=== PATIENT | female | born 2000 | race Caucasian/White ===

== ENCOUNTER 2020-06-25 17:29 | Inpatient (IN) ==
--- NOTE | 2020-06-25 18:02 | Emergency Department Note ---
Impression & Plan Alcohol intoxication, Suicide attempt ED Provider Note NAME: SANFORD JAUREGUI AGE: 19 SEX: F : 2000 ARRIVES VIA: Ambulance INFORMANT: EMS ED PROVIDER(S): Negro Valencia MD Chief Complaint: Alcohol intoxication, suicidality HPI: Patient does present and report is obtained from EMS as the patient is not able to cooperate with the history and physical exam. The patient reportedly had drank as much as 1/5 of alcohol earlier today. No reported drugs involved. The patient's BSG was in the 70s. The patient has had decreasing responsiveness but no reported trauma no signs of trauma. The patient's vitals have been stable with an appropriate oxygenation level. No reported medical problems with exception of celiac's per chart review. Patient reportedly had written a suicide note which was given to the upper caser. Additional information was obtained from the patient's friend, Alberta. She had drank an unknown amount of Bacardi. Patient reportedly had a suicide attempt by STEFAN 2 galloway ago. Apparently she has been feeling more left out as she is not doing things that her friends are doing. Patient reportedly was acting weird sending word messages to a friend Ida about being or alive and saying that she is going to end it. Patient reportedly is also sent a [employer] text. 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 Family is from [facility]. ROS: Unable to obtain secondary to clinical condition. Past medical history: See below Surgical history: See below Social history: See below Physical Exam: GENERAL: Arousable to painful stimuli, prone positioning. EYE EXAM: Normal conjunctiva. PERRL, no anisocoria and EOM's grossly intact w/o pain. NECK: Supple, no nuchal rigidity, no adenopathy, non-tender. No signs of meningismus. LUNGS: Clear to auscultation. Normal chest wall mechanics. HEART: NSR, no MRG. ABDOMEN: Abdomen soft, non-tender, normo-active bowel sounds, no masses, no rebound or guarding. BACK: No CVA TTP. SKIN: No rashes and no bruising. UPPER EXTREMITIES: Upper extremities are grossly normal. LOWER EXTREMITIES: Grossly normal, no edema. NEURO EXAM: Spontaneous breathing noted, moves all 4 extremities to painful sti muli. Differential diagnoses: Overdose, toxicologic, infection, hypoglycemia, electrolyte abnormalities, cardiac sources, intracerebral event, neurologic, trauma, as well as other pathologies. Course: Patient was seen and evaluated the bedside. Full history physical exam was performed. EKG: None Imaging Studies: See below Cardiac monitoring: An order was placed for continuous cardiac monitoring. The monitor shows a rate of 66 with sinus rhythm. MDM: Patient was seen due to concern for alcohol intoxication and attempted overdose. Blood work was obtained along with an EKG troponin CT of the head. Patient is breathing spontaneously. Patient currently has a GCS of 7 but the patient is protecting her airway. Patient was placed on 1 L supple supplemental oxygen as a precaution. I did speak with nursing staff if patient desats at all or has any signs of bradypnea/respiratory depression, we would consider intubation. Do not believe that this is required at this time. The patient is also had no reported trauma, no reported vomiting, and no reported coingestions. Patient's alcohol approximately 450. Medical clearance would be in about 11 to 12 hours in which to require psych consult. Given this I did speak with the on- call hospitalist Dr. Jane and the patient was admitted to the medicine service. Patient is still maintaining her airway and no vomiting. Do not bel ieve she requires intubation at this time. The patient was removed nasal cannula and was still satting in the high 90s without any issues. Spontaneous breathing still noted. CT of the head was negative. No signs of coingestion based on UDS. Past Med/Surg History Medical History (Updated 06/25/20 @ 19:14 by Mathew Jane MD) Celiac disease Family History Other Family history non-contributory Social History Smoking Status: Unknown if ever smoked Hx Alcohol Use: Yes Preferred Language: Sami marital status: Single Current Living Situation Comment: Roommates current occupational status: student Feels Safe at Home: Yes Allergies Allergies Allergy/AdvReac Type Severity Reaction Status Date / Time Penicillins Allergy Intermediate Hives Verified 06/25/20 17:56 banana Allergy Unknown EMS Verified 06/25/20 17:56 Beef Containing Products Allergy Unknown Unknown Verified 06/25/20 17:56 gluten Allergy Unknown EMS Verified 06/25/20 17:56 Pork/Porcine Containing Allergy Unknown Unknown Verified 06/25/20 17:56 Products soybean Allergy Unknown EMS Verified 06/25/20 17:56 strawberry Allergy Unknown EMS Verified 06/25/20 17:56 wheat Allergy Unknown EMS Verified 06/25/20 17:56 Home Meds Home Medications Medication Instructions Recorded Confirmed norethindrone-e.estradiol-iron 1 tab PO DAILY 06/25/20 06/25/20 [Blisovi 24 Fe] Results & Data (ED) Vital Signs Vital Signs - 24 hr 06/25/20 17:30 06/25/20 17:41 06/25/20 17:42 Temperature 36.6 C Temperature Source Oral Pulse Rate 56 L 54 L 55 L Pulse Rate from SpO2 Sensor 54 L 56 L Pulse Rhythm Regular Pulse Strength Normal Respiratory Rate 13 23 22 Respiratory Effort / Characteristics Spontaneous Respiratory Pattern Regular Blood Pressure 101/36 L 95/39 L Blood Pressure Mean 57 60 57 Pulse Oximetry 98 99 99 Oxygen Delivery Method Room Air Oxygen Flow Rate Sepsis Recent Fever Within 48 Hours No Sepsis New/Unexplained Change in Mental Status No Sepsis Action Taken by Nursing No Action Required 06/25/20 17:44 06/25/20 17:46 06/25/20 17:50 Temperature Temperature Source Pulse Rate 56 L 54 L 70 Pulse Rate from SpO2 Sensor 57 L 54 L 70 Pulse Rhythm Pulse Strength Respiratory Rate 23 21 25 H Respiratory Effort / Characteristics Respiratory Pattern Blood Pressure 101/36 L Blood Pressure Mean 57 Pulse Oximetry 99 99 99 Oxygen Delivery Method Oxygen Flow Rate Sepsis Recent Fever Within 48 Hours Sepsis New/Unexplained Change in Mental Status Sepsis Action Taken by Nursing 06/25/20 18:00 06/25/20 18:07 06/25/20 18:10 Temperature Temperature Source Pulse Rate 69 73 Pulse Rate from SpO2 Sensor 70 72 Pulse Rhythm Pulse Strength Respiratory Rate 23 23 Respiratory Effort / Characteristics Respiratory Pattern Blood Pressure 108/49 L Blood Pressure Mean 68 Pulse Oximetry 100 99 100 Oxygen Delivery Method Nasal Cannula Oxygen Flow Rate 1 Sepsis Recent Fever Within 48 Hours Sepsis New/Unexplained Change in Mental Status Sepsis Action Taken by Nursing 06/25/20 18:23 06/25/20 18:30 06/25/20 18:40 Temperature Temperature Source Pulse Rate 71 58 L 65 Pulse Rate from SpO2 Sensor 71 58 L 65 Pulse Rhythm Pulse Strength Respiratory Rate 24 21 18 Respiratory Effort / Characteristics Respiratory Pattern Blood Pressure 99/50 L 93/41 L Blood Pressure Mean 66 58 Pulse Oximetry 99 95 95 Oxygen Delivery Method Oxygen Flow Rate Sepsis Recent Fever Within 48 Hours Sepsis New/Unexplained Change in Mental Status Sepsis Action Taken by Nursing 06/25/20 18:45 06/25/20 18:50 06/25/20 19:00 Temperature Temperature Source Pulse Rate 85 78 74 Pulse Rate from SpO2 Sensor 82 79 75 Pulse Rhythm Pulse Strength Respiratory Rate 19 15 22 Respiratory Effort / Characteristics Respiratory Pattern Blood Pressure 101/42 L 102/50 L Blood Pressure Mean 61 67 Pulse Oximetry 95 97 97 Oxygen Delivery Method Oxygen Flow Rate Sepsis Recent Fever Within 48 Hours Sepsis New/Unexplained Change in Mental Status Sepsis Action Taken by Nursing 06/25/20 19:10 06/25/20 19:15 06/25/20 19:20 Temperature Temperature Source Pulse Rate 80 79 78 Pulse Rate from SpO2 Sensor 80 79 79 Pulse Rhythm Pulse Strength Respiratory Rate 20 23 21 Respiratory Effort / Characteristics Respiratory Pattern Blood Pressure 104/48 L Blood Pressure Mean 66 Pulse Oximetry 98 98 97 Oxygen Delivery Method Oxygen Flow Rate Sepsis Recent Fever Within 48 Hours Sepsis New/Unexplained Change in Mental Status Sepsis Action Taken by Nursing 06/25/20 19:30 06/25/20 19:40 06/25/20 19:50 Temperature Temperature Source Pulse Rate 68 75 61 Pulse Rate from SpO2 Sensor 68 75 61 Pulse Rhythm Pulse Strength Respiratory Rate 11 L 20 19 Respiratory Effort / Characteristics Respiratory Pattern Blood Pressure 100/46 L Blood Pressure Mean 64 Pulse Oximetry 100 96 98 Oxygen Delivery Method Oxygen Flow Rate Sepsis Recent Fever Within 48 Hours Sepsis New/Unexplained Change in Mental Status Sepsis Action Taken by Nursing 06/25/20 20:00 06/25/20 20:10 06/25/20 20:15 Temperature Temperature Source Pulse Rate 63 61 71 Pulse Rate from SpO2 Sensor 62 64 70 Pulse Rhythm Pulse Strength Respiratory Rate 18 17 18 Respiratory Effort / Characteristics Respiratory Pattern Blood Pressure 99/40 L 100/43 L Blood Pressure Mean 59 62 Pulse Oximetry 96 95 96 Oxygen Delivery Method Oxygen Flow Rate Sepsis Recent Fever Within 48 Hours Sepsis New/Unexplained Change in Mental Status Sepsis Action Taken by Nursing 06/25/20 20:20 06/25/20 20:30 06/25/20 20:40 Temperature Temperature Source Pulse Rate 73 61 62 Pulse Rate from SpO2 Sensor 73 60 63 Pulse Rhythm Pulse Strength Respiratory Rate 23 18 18 Respiratory Effort / Characteristics Respiratory Pattern Blood Pressure 95/41 L Blood Pressure Mean 59 Pulse Oximetry 95 95 95 Oxygen Delivery Method Oxygen Flow Rate Sepsis Recent Fever Within 48 Hours Sepsis New/Unexplained Change in Mental Status Sepsis Action Taken by Skilled Nursing Medications Current Medication List: was personally reviewed by me Laboratory Data Attestation: I reviewed the patient's lab results. Result diagrams: 06/25/20 17:49 06/25/20 17:49 Lab Results 06/25/20 06/25/20 06/25/20 Range/Units 17:44 17:44 17:44 WBC (4.8-10.8) K/uL RBC (4.2-5.4) M/uL Hgb (12.0-16.0) g/dL Hct (37-47) % MCV (80-100) fL MCH (25-34) pg MCHC (32-36) g/dL RDW Std Deviation (36.4-46.3) fL RDW Coeff of Miguel (11.5-14.5) % Plt Count (130-400) K/uL MPV (7.4-10.4) fL Immature Gran % (Auto) % Neut % (Auto) % Lymph % (Auto) % Jay % (Auto) % Eos % (Auto) % Baso % (Auto) % Neut # (Auto) (1.4-6.5) K/uL Lymph # (Auto) (1.2-3.4) K/uL Jay # (Auto) (0.11-0.59) K/uL Eos # (Auto) (0-0.5) K/uL Baso # (Auto) (0-0.2) K/uL Immature Gran # (Auto) (0.00-0.02) K/uL Sodium (136-145) mmol/L Potassium (3.5-5.1) mmol/L Chloride (98-107) mmol/L Carbon Dioxide (21-32) mmol/L Anion Gap (3-11) BUN (7-18) mg/dl Creatinine (0.6-1.2) mg/dl Est Cr Clr Drug Dosing Est GFR ( Amer) Est GFR (Non-Af Amer) BUN/Creatinine Ratio (10-20) Glucose (70-99) mg/dl Calcium (8.5-10.1) mg/dl Total Bilirubin (0.2-1) mg/dl AST (15-37) U/L ALT (12-78) U/L Alkaline Phosphatase (45-117) U/L Total Protein (6.4-8.2) gm/dl Albumin (3.4-5.0) gm/dl Globulin (2.5-4.0) gm/dl Albumin/Globulin Ratio (0.9-2) TSH (0.300-4.500) uIu/ml Specimen Hemolysis Urine Color Yellow Urine Appearance Clear (Clear) Urine pH 6.5 (4.5-7.5) Ur Specific [place] 1.007 (1.000-1.030) Urine Protein Negative (Negative) Urine Glucose (UA) Negative (Negative) Urine Ketones Negative (Negative) Urine Blood Negative (Negative) Urine Nitrite Negative (Negative) Urine Bilirubin Negative (Negative) Urine Urobilinogen Negative (Negative) Ur Leukocyte Esterase Negative (Negative) Urine Test Negative (Negative) Salicylates (2.8-20) mg/dl Urine Opiates Screen Neg (Neg) Ur Methadone, Qual Neg (Neg) Acetaminophen (10-30) ug/ml Urine Barbiturates Neg (Neg) Ur Phencyclidine (PCP) Neg (Neg) U Amphetamin/Meth Scrn Neg (Neg) MDMA (Ecstasy) Screen Neg (Neg) U Benzodiazepines Scrn Neg (Neg) Ur Cocaine Metabolite Neg (Neg) U Marijuana (THC) Screen Neg (Neg) Ethyl Alcohol mg/dL (0-3) mg/dl COVID-19 Eval Order SARS-CoV-2 (PCR) (Negative) Influenza Type A (PCR) (Neg) Influenza Type B (PCR) (Neg) RSV (RT-PCR) (Neg) 06/25/20 06/25/20 06/25/20 Range/Units 17:49 17:49 17:49 WBC 12.32 H (4.8-10.8) K/uL RBC 4.49 (4.2-5.4) M/uL Hgb 15.1 (12.0-16.0) g/dL Hct 43.5 (37-47) % MCV 96.9 (80-100) fL MCH 33.6 (25-34) pg MCHC 34.7 (32-36) g/dL RDW Std Deviation 49.3 H (36.4-46.3) fL RDW Coeff of Miguel 13.9 (11.5-14.5) % Plt Count 284 (130-400) K/uL MPV 10.6 H (7.4-10.4) fL Immature Gran % (Auto) 0.2 % Neut % (Auto) 69.7 % Lymph % (Auto) 26.5 % Jay % (Auto) 3.3 % Eos % (Auto) 0.1 % Baso % (Auto) 0.2 % Neut # (Auto) 8.58 H (1.4-6.5) K/uL Lymph # (Auto) 3.26 (1.2-3.4) K/uL Jay # (Auto) 0.41 (0.11-0.59) K/uL Eos # (Auto) 0.01 (0-0.5) K/uL Baso # (Auto) 0.03 (0-0.2) K/uL Immature Gran # (Auto) 0.03 H (0.00-0.02) K/uL Sodium 146 H (136-145) mmol/L Potassium 3.9 (3.5-5.1) mmol/L Chloride 112 H (98-107) mmol/L Carbon Dioxide 22 (21-32) mmol/L Anion Gap 12.0 H (3-11) BUN 14 (7-18) mg/dl Creatinine 0.85 (0.6-1.2) mg/dl Est Cr Clr Drug Dosing Not Reportable Est GFR ( Amer) 114.3 Est GFR (Non-Af Amer) 98.6 BUN/Creatinine Ratio 16.3 (10-20) Glucose 74 (70-99) mg/dl Calcium 9.0 (8.5-10.1) mg/dl Total Bilirubin 0.3 (0.2-1) mg/dl AST 21 (15-37) U/L ALT 52 (12-78) U/L Alkaline Phosphatase 60 (45-117) U/L Total Protein 7.9 (6.4-8.2) gm/dl Albumin 4.0 (3.4-5.0) gm/dl Globulin 3.9 (2.5-4.0) gm/dl Albumin/Globulin Ratio 1.0 (0.9-2) TSH 0.525 (0.300-4.500) uIu/ml Specimen Hemolysis Urine Color Urine Appearance (Clear) Urine pH (4.5-7.5) Ur Specific Cary (1.000-1.030) Urine Protein (Negative) Urine Glucose (UA) (Negative) Urine Ketones (Negative) Urine Blood (Negative) Urine Nitrite (Negative) Urine Bilirubin (Negative) Urine Urobilinogen (Negative) Ur Leukocyte Esterase (Negative) Urine Test (Negative) Salicylates < 1.7 L (2.8-20) mg/dl Urine Opiates Screen (Neg) Ur Methadone, Qual (Neg) Acetaminophen < 2 L (10-30) ug/ml Urine Barbiturates (Neg) Ur Phencyclidine (PCP) (Neg) U Amphetamin/Meth Scrn (Neg) MDMA (Ecstasy) Screen (Neg) U Benzodiazepines Scrn (Neg) Ur Cocaine Metabolite (Neg) U Marijuana (THC) Screen (Neg) Ethyl Alcohol mg/dL (0-3) mg/dl COVID-19 Eval Order SARS-CoV-2 (PCR) (Negative) Influenza Type A (PCR) (Neg) Influenza Type B (PCR) (Neg) RSV (RT-PCR) (Neg) 06/25/20 06/25/20 06/25/20 Range/Units 17:49 18:51 18:51 WBC (4.8-10.8) K/uL RBC (4.2-5.4) M/uL Hgb (12.0-16.0) g/dL Hct (37-47) % MCV (80-100) fL MCH (25-34) pg MCHC (32-36) g/dL RDW Std Deviation (36.4-46.3) fL RDW Coeff of Miguel (11.5-14.5) % Plt Count (130-400) K/uL MPV (7.4-10.4) fL Immature Gran % (Auto) % Neut % (Auto) % Lymph % (Auto) % Jay % (Auto) % Eos % (Auto) % Baso % (Auto) % Neut # (Auto) (1.4-6.5) K/uL Lymph # (Auto) (1.2-3.4) K/uL Jay # (Auto) (0.11-0.59) K/uL Eos # (Auto) (0-0.5) K/uL Baso # (Auto) (0-0.2) K/uL Immature Gran # (Auto) (0.00-0.02) K/uL Sodium (136-145) mmol/L Potassium (3.5-5.1) mmol/L Chloride (98-107) mmol/L Carbon Dioxide (21-32) mmol/L Anion Gap (3-11) BUN (7-18) mg/dl Creatinine (0.6-1.2) mg/dl Est Cr Clr Drug Dosing Est GFR ( Amer) Est GFR (Non-Af Amer) BUN/Creatinine Ratio (10-20) Glucose (70-99) mg/dl Calcium (8.5-10.1) mg/dl Total Bilirubin (0.2-1) mg/dl AST (15-37) U/L ALT (12-78) U/L Alkaline Phosphatase (45-117) U/L Total Protein (6.4-8.2) gm/dl Albumin (3.4-5.0) gm/dl Globulin (2.5-4.0) gm/dl Albumin/Globulin Ratio (0.9-2) TSH (0.300-4.500) uIu/ml Specimen Hemolysis Urine Color Urine Appearance (Clear) Urine pH (4.5-7.5) Ur Specific Cary (1.000-1.030) Urine Protein (Negative) Urine Glucose (UA) (Negative) Urine Ketones (Negative) Urine Blood (Negative) Urine Nitrite (Negative) Urine Bilirubin (Negative) Urine Urobilinogen (Negative) Ur Leukocyte Esterase (Negative) Urine Test (Negative) Salicylates (2.8-20) mg/dl Urine Opiates Screen (Neg) Ur Methadone, Qual (Neg) Acetaminophen (10-30) ug/ml Urine Barbiturates (Neg) Ur Phencyclidine (PCP) (Neg) U Amphetamin/Meth Scrn (Neg) MDMA (Ecstasy) Screen (Neg) U Benzodiazepines Scrn (Neg) Ur Cocaine Metabolite (Neg) U Marijuana (THC) Screen (Neg) Ethyl Alcohol mg/dL 448.0 H (0-3) mg/dl COVID-19 Eval Order CovFluRsv at [facility] SARS-CoV-2 (PCR) NEGATIVE (Negative) Influenza Type A (PCR) Negative (Neg) Influenza Type B (PCR) Negative (Neg) RSV (RT-PCR) Negative (Neg) Administered Medications Sodium Chloride (Nss) 500 mls @ 100 mls/hr IV .Q5H YARITZA Stop: 07/25/20 18:44 Last Admin: 06/25/20 18:50 Dose: 100 mls/hr Documented by: [id number] Imaging Data Radiologist's Impression: Head CT 06/25/20 17:40 CT head/brain wo con CLINICAL HISTORY: 19 years-old Female with ETOH. Acute head trauma TECHNIQUE: Multiple axial CT images of the head were obtained without contrast. A dose lowering technique was utilized adhering to the principles of ALARA. CT DOSE: 773.57 mGy.cm COMPARISON: None. FINDINGS: Artifact from the patient's earrings limits the study. No acute intracranial hemorrhage, midline shift, intracranial mass, hydrocephalus, territorial ischemia or abnormal extra-axial collection. The calvarium is intact. The paranasal sinuses, mastoid air cells, and middle ear cavities are clear. IMPRESSION: No acute intracranial abnormality. ACT 112: Negative or not required by law. The above report was generated using voice recognition software. It may contain grammatical, syntax or spelling errors. Electronically signed by: Gary Boykin M.D. 06/25/2020 6:23 PM Discharge Plan Visit Data Chief Complaint: Alcohol Intoxication Stated Complaint: ETOH, MHID ED Provider: Negro Valencia Discharge Problem: Alcohol intoxication, Suicide attempt Forms Stand Alone Forms: My [facility] [place] [employer] Prescriptions Prescriptions: No Action norethindrone-e.estradiol-iron [Blisovi 24 Fe] 1 mg-20 mcg (24)/75 mg (4) tablet 1 tab PO DAILY RF: 0
[2020-06-25 18:04] LABS: Basophils # (auto) 0.03 K/uL (0-0.2); Basophils % (auto) 0.2 %; Eosinophils # (auto) 0.01 K/uL (0-0.5); Eosinophils % (auto) 0.1 %; Hematocrit (blood only) 43.5 % (37-47); Hemoglobin 15.1 g/dL (12.0-16.0); Immature Granulocytes # (auto) 0.03 K/uL (0.00-0.02); Immature Granulocytes % (auto) 0.2 %; Lymphocytes # (auto) 3.26 K/uL (1.2-3.4); Lymphocytes % (auto) 26.5 %; Mean Corpuscular Hemoglobin 33.6 pg (25-34); Mean Corpuscular Hgb Conc 34.7 g/dL (32-36); Mean Corpuscular Volume 96.9 fL (80-100); Mean Platelet Volume 10.6 fL (7.4-10.4); Monocytes # (auto) 0.41 K/uL (0.11-0.59); Monocytes % (auto) 3.3 %; Neutrophils # (auto) 8.58 K/uL (1.4-6.5); Neutrophils % (auto) 69.7 %; Platelet Count 284 K/uL (130-400); RDW Coefficient of Variation 13.9 % (11.5-14.5); RDW Standard Deviation 49.3 fL (36.4-46.3); Red Blood Count 4.49 M/uL (4.2-5.4); White Blood Count 12.32 K/uL (4.8-10.8)
[2020-06-25 18:10] LABS: Appearance Urine Clear (Clear); Bilirubin Urine Negative (Negative); Blood Urine Negative (Negative); Color Urine Yellow; Glucose Urine UA Negative (Negative); Ketones Urine Negative (Negative); Leukocyte Esterase Urine Negative (Negative); Nitrite Urine Negative (Negative); Protein Urine Negative (Negative); Specific Gravity Urine 1.007 (1.000-1.030); Urobilinogen Urine Negative (Negative); pH Urine 6.5 (4.5-7.5)
[2020-06-25 18:12] LABS: Pregnancy Test, Urine Negative (Negative)
--- NOTE | 2020-06-25 18:24 | CT Scan Report ---
CT head/brain wo con CLINICAL HISTORY: 19 years-old Female with ETOH. Acute head trauma TECHNIQUE: Multiple axial CT images of the head were obtained without contrast. A dose lowering tech nique was utilized adhering to the principles of ALARA. CT DOSE: 773.57 mGy.cm COMPARISON: None. FINDINGS: Artifact from the patient's earrings limits the study. No acute intracranial hemorrhage, midline shif t, intracranial mass, hydrocephalus, territorial ischemia or abnormal extra-axial collection. The calvarium is intact. The paranasal sinuses, mastoid air cells, and middle ear cavities are clear . IMPRESSION: No acute intracranial abnormality. ACT 112: Negative or not required by law. The above report was generated using voice recognition software. It may contain grammatical, syntax o r spelling errors. Electronically signed by: Gary Boykin M.D. 06/25/2020 6:23 PM
[2020-06-25 18:28] LABS: Alanine Aminotransferase 52 U/L (12-78); Aspartate Aminotransferase 21 U/L (15-37); BUN Creatinine Ratio 16.3 (10-20); Blood Urea Nitrogen 14 mg/dl (7-18); Carbon Dioxide 22 mmol/L (21-32); Chloride 112 mmol/L (98-107); Est GFR (African American) 114.3; Est GFR (Non-African American) 98.6; Glucose 74 mg/dl (70-99); Potassium 3.9 mmol/L (3.5-5.1); Sodium 146 mmol/L (136-145)
[2020-06-25 18:32] LABS: Amphetamines+Metham, Urine Neg (Neg); Barbiturates, Urine Neg (Neg); Benzodiazepine, Urine Neg (Neg); Cocaine, Urine Neg (Neg); MDMA (Ecstacy), Urine Neg (Neg); Methadone, Urine Neg (Neg); Opiate, Urine Neg (Neg); Phencyclidine, Urine Neg (Neg)
[2020-06-25 18:33] LABS: Acetaminophen < 2 ug/ml (10-30); Salicylate < 1.7 mg/dl (2.8-20)
[2020-06-25 18:34] LABS: Alkaline Phosphatase 60 U/L (45-117); Bilirubin,Total 0.3 mg/dl (0.2-1); Globulin 3.9 gm/dl (2.5-4.0); Thyroid Stimulating Hormone 0.525 uIu/ml (0.300-4.500); Total Protein 7.9 gm/dl (6.4-8.2)
[2020-06-25] MEDS ORDERED: SODIUM CHLORIDE 0.9% 500 ML IV SCH (18:45)
--- NOTE | 2020-06-25 19:08 | History & Physical Report ---
Date of Service June 25, 2020 Assessment & Plan (1) Alcohol intoxication: Severe with alcohol intoxication. Ethyl alcohol level 448 mg/dL. RR 18. Gag reflex intact Monitor overnight on PCU for respiratory depression with end tidal CO2 monitoring and continuous pulse oximetry. (2) Anxiety: Noted possible reason for patient drinking alcohol on prior ER notes. (3) Suicide attempt: One to one. Consult psychiatry (4) Celiac disease: Notable history of this on chart. NPO for now but will need gluten free diet when able to the eat/drink. Admission and Anticipated Discharge Date Admission Date: June 25, 2020 History of Present Illness Chief Complaint: Unresponsiveness, alcohol intoxication Primary Care Provider: [facility] Lucita Palacios is a 19-year-old female who presents to the ER via EMS due to unresponsiveness after drinking an unknown quantity of Bacardi with a suicide note. Reportedly has a history of suicidal attempt 2 years ago. Unable to get any history from patient due to reduced conscious state. 2 prior ER notes for alcohol intoxication and one prior note for mental health evaluation noted. Allergies Allergy/AdvReac Type Severity Reaction Status Date / Time Penicillins Allergy Intermediate Hives Verified 06/25/20 17:56 banana Allergy Unknown EMS Verified 06/25/20 17:56 Beef Containing Products Allergy Unknown Unknown Verified 06/25/20 17:56 gluten Allergy Unknown EMS Verified 06/25/20 17:56 Pork/Porcine Containing Allergy Unknown Unknown Verified 06/25/20 17:56 Products soybean Allergy Unknown EMS Verified 06/25/20 17:56 strawberry Allergy Unknown EMS Verified 06/25/20 17:56 wheat Allergy Unknown EMS Verified 06/25/20 17:56 Home Medications Medication Instructions Recorded Confirmed Type norethindrone-e.estradiol-iron 1 tab PO DAILY 06/25/20 06/25/20 History [Blisovi 24 Fe] Past Med/Surg History Medical History Celiac disease Family History Other Family history non-contributory Social History Smoking Status: Unknown if ever smoked Hx Alcohol Use: Yes Alcohol type: hard liquor Preferred Language: Albanian marital status: Single Current Living Situation: Other Current Living Situation Comment: pt is student at [employer] - has roommates current occupational status: student Feels Safe at Home: Yes Review of Systems Review of Systems: Unobtainable due to reduced consciousness Physical Exam Constitutional: well developed and well nourished; no acute distress Eyes: PERRL, conjunctivae normal, anicteric sclerae (dilated) ENMT: external ear and nose normal, oropharynx normal Neck: trachea midline Respiratory: normal respiratory effort, lungs clear to auscultation Cardiovascular: RRR, no murmur, no edema Gastrointestinal (Abdomen): normal bowel sounds, soft, nontender, no hepatosplenomegaly Musculoskeletal: no cyanosis or clubbing, extremities motor strength 5/5 Skin: no rashes, warm and dry Neurologic: moves all extremities (reportedly moving when she went for CT); + not awake (GCS 7 ([id number])) Psychiatric: Orientation: + not alert Results & Data Results & Data ([facility]) Vital Signs (Past 12 Hours) Vital Signs Temp Pulse Resp BP Pulse Ox 06/25/20 18:23 71 24 99/50 L 99 06/25/20 18:10 73 23 100 06/25/20 18:07 99 06/25/20 18:00 69 23 108/49 L 100 06/25/20 17:50 70 25 H 99 06/25/20 17:46 54 L 21 101/36 L 99 06/25/20 17:44 56 L 23 99 06/25/20 17:42 55 L 22 95/39 L 99 06/25/20 17:41 54 L 23 99 06/25/20 17:30 36.6 C 56 L 13 101/36 L [address] head/brain wo con IMPRESSION: No acute intracranial abnormality. Medications Administered ER Medications Given: NSS 500ml @ 100 ml/hr Code Status & VTE Plan Code Status Full VTE Prophylaxis Plan VTE Prophylaxis will be ordered: No Reason for no VTE drug order: Treatment not indicated Reason for no VTE mechanical prophylaxis: Treatment not indicated PG Care Time/CCT Total # of Minutes Spent Total Time Spent with Patient: Total time spent is greater than 50% in coordination of care (as documented) at patient's floor/unit and/or counseling patient: Coding Level of Care Code 98610 Initial Inpt Care Lvl 3 Diagnoses Alcohol intoxication F10.929 Complication of substance-induced condition: with unspecified complication Anxiety F41.9 Suicide attempt T14.91XA Celiac disease K90.0 (1) Alcohol intoxication Complication of substance-induced condition: with unspecified complication Qualified Code(s): F10.929 - Alcohol use, unspecified with intoxication, unspecified
[2020-06-25 20:03] LABS: Influenza A virus by PCR Negative (Neg); Influenza B virus by PCR Negative (Neg); RSV by PCR Negative (Neg); SARS CoV2 RNA(COVID-19) InHosp NEGATIVE (Negative)
[2020-06-25] MEDS ORDERED: MULTI-VITAMIN INFUSION 10 ML, THIAMINE HCL 100 MG, FOLIC ACID 1 MG in SODIUM CHLORIDE 0... IV ONE (21:23)
[2020-06-26] MEDS ORDERED: SODIUM CHLORIDE 0.9% 1000ML 1,000 ML IV SCH (02:15)
[2020-06-26] MEDS ORDERED: DEXTROSE 5% 1,000 ML IV SCH (06:00)
[2020-06-26 06:31] LABS: Basophils # (auto) 0.01 K/uL (0-0.2); Basophils % (auto) 0.1 %; Immature Granulocytes # (auto) 0.04 K/uL (0.00-0.02); Immature Granulocytes % (auto) 0.4 %; Lymphocytes % (auto) 19.5 %; Mean Corpuscular Hemoglobin 32.8 pg (25-34); Mean Corpuscular Hgb Conc 33.3 g/dL (32-36); Mean Corpuscular Volume 98.4 fL (80-100); Mean Platelet Volume 10.3 fL (7.4-10.4); Monocytes # (auto) 0.33 K/uL (0.11-0.59); Monocytes % (auto) 3.1 %; Neutrophils # (auto) 8.31 K/uL (1.4-6.5); Neutrophils % (auto) 76.9 %; Platelet Count 255 K/uL (130-400); RDW Coefficient of Variation 14.2 % (11.5-14.5); Red Blood Count 4.27 M/uL (4.2-5.4); White Blood Count 10.79 K/uL (4.8-10.8)
--- NOTE | 2020-06-26 06:56 | XRay Report ---
XR chest 1V portable CLINICAL HISTORY: acute alcohol intoxication COMPARISON STUDY: No previous studies for comparison. FINDINGS: The cardiac and mediastinal contours are normal. There is no evidence of focal pulmonary co nsolidation. There is no evidence of failure. No pleural effusions are visualized.[ IMPRESSION: No active disease in the chest. ACT 112: Negative or not required by law. Electronically signed by: Aron Burciaga M.D. 06/26/2020 6:55 AM
[2020-06-26 07:02] LABS: Alanine Aminotransferase 47 U/L (12-78); Albumin Level 3.4 gm/dl (3.4-5.0); Aspartate Aminotransferase 22 U/L (15-37); Blood Urea Nitrogen 22 mg/dl (7-18); Calcium 8.1 mg/dl (8.5-10.1); Carbon Dioxide 19 mmol/L (21-32); Chloride 116 mmol/L (98-107); Est GFR (African American) 97.4; Est GFR (Non-African American) 84.1; Glucose 87 mg/dl (70-99); Potassium 4.2 mmol/L (3.5-5.1); Sodium 145 mmol/L (136-145)
[2020-06-26 07:05] LABS: Alkaline Phosphatase 53 U/L (45-117); Bilirubin,Total 0.4 mg/dl (0.2-1); Globulin 3.4 gm/dl (2.5-4.0); Total Protein 6.8 gm/dl (6.4-8.2)
[2020-06-26] MEDS ORDERED: ACETAMINOPHEN 325 MG TAB PO PRN (09:03)
[2020-06-26] MEDS ORDERED: ONDANSETRON 4 MG OD TAB PO PRN (09:03)
--- NOTE | 2020-06-26 13:35 | Communication Note ---
Date of Service: June 26, 2020 Lucita Palacios is a 19-year-old female admitted medically on 06/25/20 after presenting to the ED via ambulance s/p intentional ingestion of a large amount of alcohol (BAL 448) and a suicide attempt by trying to drown self in bathtub (according to evidence presented by friends). Additional information was provided by the patient's roommates, who provided copies of text messages and history demonstrating a pattern of isolation and intentional separation from supports and even canceling plans for the following week. Information provided by the roommates was reviewed by this provider in detail and is quite concerning. Pt also wrote a suicide note, copy on chart. This provider met with the patient to complete requested psychiatric consultation. Pt minimizing factors leading to her admission and has expressed multiple times to several different staff members that she is not interested in inpatient psychiatric treatment. Patient's case was reviewed with attending hospitalist and supervising psychiatrist. Pt has since been medically cleared and plan is to purse involuntary psychiatric admission. See Psychiatric H&P for additional documentation regarding the patient's history.
--- NOTE | 2020-07-04 08:17 | Discharge Summary ---
Date of Service June 26, 2020 Admission HPI Per Admitting Provider Lucita Palacios is a 19-year-old female who presents to the ER via EMS due to unresponsiveness after drinking an unknown quantity of Bacardi with a suicide note. Reportedly has a history of suicidal attempt 2 years ago. Unable to get any history from patient due to reduced conscious state. 2 prior ER notes for alcohol intoxication and one prior note for mental health evaluation noted. Principal Diagnosis Suicide attempt Discharge Exam Constitutional WD/WN, vitals as above Eyes EOM intact bilaterally; no conjunctival abnormality ENMT external ear and nose normal, oropharynx normal Neck trachea midline, no thyromegaly normal visual inspection Respiratory normal respiratory effort, lungs clear to auscultation no respiratory distress Cardiovascular RRR, no murmur, no edema Gastrointestinal (Abdomen) Inspection/Auscultation: abdomen normal to inspection; abdomen not distended Musculoskeletal no cyanosis or clubbing, extremities motor strength 5/5 Skin no rashes, warm and dry Neurologic moves all extremities and awake Psychiatric Orientation: alert, oriented to person and cooperative Discharge Data Allergies Allergy/AdvReac Type Severity Reaction Status Date / Time Penicillins Allergy Intermediate Hives Verified 06/25/20 17:56 banana Allergy Unknown EMS Verified 06/25/20 17:56 gluten Allergy Unknown EMS Verified 06/25/20 17:56 milk Allergy Unknown Unknown Verified 06/26/20 15:50 soybean Allergy Unknown EMS Verified 06/25/20 17:56 strawberry Allergy Unknown EMS Verified 06/25/20 17:56 wheat Allergy Unknown EMS Verified 06/25/20 17:56 Consultations 06/25/20 19:05 ED Decision to Admit Stat 06/26/20 01:56 Consult Psychiatry Routine 06/26/20 02:59 Consult Behavioral Health Liaison Routine Ordered Studies 06/25/20 17:40 CT head/brain wo con Stat Hospital Course (1) Alcohol intoxication: Severe with alcohol intoxication. Ethyl alcohol level 448 mg/dL. RR 18. Gag reflex intact Monitor overnight on PCU for respiratory depression with end tidal CO2 monitoring and continuous pulse oximetry. Awake and alert by June 26. No sign of alcohol withdrawal. Ready for transition to inpatient psychiatry. (2) Anxiety: Noted possible reason for patient drinking alcohol on prior ER notes. (3) Suicide attempt: One to one. Consult psychiatry (4) Celiac disease: Notable history of this on chart. NPO for now but will need gluten free diet when able to the eat/drink. Total Time Total Time Spent Total Time Spent (In Minutes): 35 Discharge Plan Discharge Items Patient Disposition: Transfer [facility] Reason For Visit: ALCOHOL INTOXICATION, SUICIDAL ATTEMPT Discharge Diagnosis: Same Activity: Resume your previous activity Non-emergency contact: Primary Care Provider Call non-emergency contact if: your symptoms worsen Follow-up/Referrals: [facility] [Primary Care Provider] - Diet: Regular Addtl Attending Provider Instructions: Transfer to [facility] after suicide attempt. Can monitor for withdrawal for another 2-3 days, but I think it is unlikely as she is a sporadic, binge drinker and is not currently having any symptoms. Pending Studies at Discharge: No Stand-Alone Forms: My [facility] Medications and DC Order Prescriptions: Continued norethindrone-e.estradiol-iron [Blisovi 24 Fe] 1 mg-20 mcg (24)/75 mg (4) tablet 1 tab PO DAILY RF: 0 Discharge Orders: Discharge Order (Routine); Ordered 06/26/20 Ordered By: Hudson Saha Admission Data Admit Date/Time: 06/25/20 19:52 Attending Provider: Hudson Saha Admit Provider: Mathew Jane Primary Care Provider: [facility] Other Providers: Anant Corley ; Hudson Saha Other Interventions: Discharge Summary Assessment (RN) Last Done: 06/26/20 14:58 Coding Level of Care Code D/C Day Management >30 mins Diagnoses Alcohol intoxication F10.929 Complication of substance-induced condition: with unspecified complication Anxiety F41.9 Suicide attempt T14.91XA Celiac disease K90.0
== END 2020-06-26 15:00 | DRG 918 ==
LOC: ED 17:29 → 2S 19:52 → SUATTDRO 19:52 → 2S 06-26 01:28

== ENCOUNTER 2020-06-26 14:40 | Inpatient (IN) ==
--- NOTE | 2020-06-26 15:19 | History & Physical ---
Date of Service June 26, 2020 Impression / Recommendations Impression 19-year-old female admitted involuntarily for psychiatric treatment on 06/26/20 after <24 hour stay on the medical floor following presentation to the ED for alcohol intoxication, having written a suicide note and goodbye text messages to friends/roommates. Inpatient psychiatric treatment is medically necessary as patient is minimizing events leading to her admission and remains at acute risk of suicide if discharged prematurely. Dr. Carmella Gooden was directly involved in review and discussion of the patient's case and participated in medical decision making regarding treatment recommendations. (1) Suicide attempt: 06/26 - Denies SI presently, but had very concerning behavior prior to admission which appears to be premeditated suicide attempt - Admitted to a locked inpatient behavioral health unit, on q15 minute safety checks - Encourage medication initiation/adjustments as indicated - Encourage participation in group and recreational therapies - Gather collateral information from outpatient providers - Suggest family meeting to involve outpatient supports in safety planning - Arrange appropriate aftercare (2) Depression: 06/26 - Diagnostic picture is admittedly clouded by minimization of symptoms by the patient. She admits to history of behaviors which are consistent with major depressive episodes in the past; however describes her recent mood as "solid" and denies depressive symptoms within the past few weeks - History provided by roommates suggests increased isolative behaviors and discord with friendships. She did endorse decreased concentration, poor motivation, crying spells, and hopelessness during conversation with our liaison, but under reported these during encounter with this provider - Recommendation for medications and outpatient therapy was suggested, patient is presently declining both - will continue to offer education and information on these recommendations. - Encourage patient to engage in group and recreational programming, assist with development of healthy and effective coping strategies - Encourage family meeting with outpatient supports (parents flying into the area) - Assist patient with completion of a safety plan Depression Type: unspecified Qualified Code(s): F32.9 - Major depressive disorder, single episode, unspecified (3) Anxiety: 06/26 - Pt meets criteria for generalized anxiety disorder with panic attacks. She is declining at this time to consider medications. Will continue to offer education and information, encouraging trial of an SSRI - Hydroxyzine as needed for acute anxiety and/or insomnia - Assist with development of healthy and effective coping strategies (4) Alcohol abuse: 06/26 - AWSS protocol - prn lorazepam as needed per protocol - Pt is able to identify past issues with alcohol use, but reports feeling as though her current use in not concerning as she has cut down in consumption. - Pt has had 4 presentations to the ED for alcohol related concerns, and is not of legal age for alcohol use - Pt would benefit from formal D&A counseling to address these concerns - Continue to explore motivation for change - Brief intervention was offered and accepted Intervention was greater than 5 min in length. Brief interventions include: 1. Assess Readiness to Quit, 2. Advise: Help Patient to Reduce or Abstain from Alcohol, 3. Agree: Set Specific, Feasible Goa ls, 4. Assist: Anticipate barriers, Problem-Solving Solutions. Social work to 5. Arrange: Referrals to appropriate treatment. Summary of intervention: The patient is in precontemplation stage with regards to transtheoretical model of change. The patient is advised to decrease alcohol consumption due to depressant effects and risk of interactions with prescription medications. The patient was advised of recommendations for abstinence from alcohol and other abusable substances and to attend substance abuse treatment at discharge, and will be provided with recovery materials to continue to education self on how to cope with their condition without drinking. (5) Celiac disease: 06/26 - Appropriate diet, dietary consultation if indicated - Monitor nutritional intake given history of disordered eating behaviors Risk Factors Assessment Male: No : Yes Do You Have Access To A Gun?: No Substance Use Disorders: Yes Previous Attempt: Yes Previous Psychiatric Hospitalization: No Hopelessness: Yes Smoker: No Protective Factors Assessment : No Responsible for Young Children: No Stable Relationships: No Supportive Family: Yes Psychiatric History Identifying Data SANFORD PALACIOS is a 19-year-old [employer] who currently resides in an apartment with 3 roommates. Pt admits to a history of untreated depression and anxiety, and was admitted on 06/26/20 15:11 on a 302 involuntary commitment for depression and a suicide attempt by alcohol intoxication and what seems to be attempted drowning. 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 Patient is from [facility] where her parents still reside. The patient presented to the ED on 06/25/20 via ambulance with reported alcohol intoxication and suicidality. Pt was initially unable/unwilling to cooperate with providing information in the ED. BAL on presentation was 448.0 and patient had reportedly consumed as much as a 1/5 of liquor over the course of the day. Additional information provided by the patient's roommates which indicates patient began intentionally isolating self from others starting June 18, increased alcohol use, she reportedly began cancelling plans and passing along projects to her roommates in anticipation she would "forget" later. From the text messages provided, it appears that patient may have been upset about not being invited to a republican over the weekend, though obviously is not of legal age. On 06/25, it was reported that the patient was visibly upset and started drinking early in the morning. Pt then sent a text to her friends which states "I'm so sorry but I just can't do this anymore. I'm chilling in the bath until it's over. I really do love you all!" Pt reportedly did not answer when friends attempted to knock on the bathroom door. It was reported she consumed "almost half a handle of the Bacardi." A suicide note was also found, which reads - This world is cruel. I applaud anyone who can live in it. Me? I am too weak and unwanted to keep going in it. I tried. I tried more than I have at anything in my life, but I cant feel this pain anymore. To my family: Im so sorry and I love you more than anything and I hope to see you in the after. 302 petitioning statement was completed by the parks and recreation manager, based on this suicide note. 302 commitment was pursued based on repeated reports during multiple interviews that the patient was not willing to comply with recommendation for inpatient psychiatric admission. Pt did agree to conversation with this provider, though it is felt that her reports are greatly minimized when compared to information provided by roommates. Pt indicated she came to the ED as a result of "I drank a lot...yeah", and did not spontaneously elaborate. Pt then admitted to some trouble with "friendships and self-worth type stuff", but indicated that "it's all been fine though recently, I've been working on it." Pt indicated that she has been struggling with depressed mood for "the past couple months", but is only reporting now that "things are a lot better, I have a solid handle on it." Despite attempts by this provider to challenge this idea, the patient maintains that the is not experiencing any acute issues. When asked about the suicide note, the patient states "oh, I did that? Shoot." She denies consuming the alcohol with the intent to end her life, but admits "it was a thought that came up, and at that point I didn't care if it hurt me." Pt does disclose a history of self-harm behavior by cutting, admitting to cutting last evening during these events. According to the patient, the only reports regarding yesterday are "I started drinking early in the morning, and then I just snapped at something." She is unable/unwilling to explain what that "something" might have been. Pt continues to be resistant to labeling her actions as a suicide attempt, but does later admit "I think because things had been going so well, I had that fear of regression." Pt states that she has noticed improvement in mood through being more social, reading her bible, and reducing the academic pressure she puts on herself - some of these self-reports are conflicting when compared to information provided by roommates. Pt does admit to anxiety "since I could first think of it, maybe high school?" She states that she experiences panic attacks daily to every other day, often out of the blue. She admits to anxiety surrounding friendships and academics. Pt admits to poor concentration, racing thoughts, and difficulty with sleep. She states she had outpatient therapy her Freshman year of college, but has not continued with this. She states she had started reaching out to resume therapy but declined to add her name to a waitlist as "I was just going to handle it next semester." Pt declines to discuss medication options today, stating "I've never been one to want to depend on medications." When discussing recommendation for therapy, the patient states "I'm confident I can take care of that myself later." Pt admits to history of restrictive/purging behaviors from high school to Freshman year of college, but denies recent/current temptation to participate in these behaviors. She also admits to history of abuse/trauma, though is not willing to disclose details at this time. Pt continues to min imize these concerns and affect is generally light with frequent smiling. She states that she does not feel that inpatient psychiatric treatment would be beneficial for her. Pt admits to history of more excessive alcohol use, daily use of significant amount of liquor - withdrawal symptoms of nausea, shaking, "emotional depression", and "seeing floaters". She states that she has cut back on her alcohol use recently, drinking 2-3 days per week to the point of feeling buzzed. When asked the number of drinks per day, she states "eh, maybe 4 or 5" but then adds "in 3 hours." Pt denies current SI, HI, A/V hallucinations, paranoia, bi/hypomania, other symptoms more suggestive of a bipolar presentation, OCD, and other specific psychiatric symptoms. Past Psychiatric History Outpatient Services: None Previous Psych Admissions: None Do You Have Access To A Gun?: No History of Previous Suicide Attempt: Yes (per ED note, "suicide attempt by STEFAN 2 galloway ago") Past Medication Trials: None Past Head Trauma/Neuro History History of Concussion/Seizure: No Allergies Allergy/AdvReac Type Severity Reaction Status Date / Time Penicillins Allergy Intermediate Hives Verified 06/25/20 17:56 banana Allergy Unknown EMS Verified 06/25/20 17:56 gluten Allergy Unknown EMS Verified 06/25/20 17:56 milk Allergy Unknown Unknown Verified 06/26/20 15:50 soybean Allergy Unknown EMS Verified 06/25/20 17:56 strawberry Allergy Unknown EMS Verified 06/25/20 17:56 wheat Allergy Unknown EMS Verified 06/25/20 17:56 Home Medications Medication Instructions Recorded Confirmed Type norethindrone-e.estradiol-iron 1 tab PO DAILY 06/25/20 06/25/20 History [Blisovi 24 Fe] Family History Family History of: Alcoholism/Drug Abuse (uncle and cousing with alcohol abuse) and Other-List under Comment (maternal aunt with an eating disorder) Alcohol History Hx of Alcohol Use Over the Past 12 Months: Yes Smoking Use Smoking Status: Unknown if ever smoked Substance History Hx of Prescription Med Misuse Over the Past 12 Months: No Hx of Over the Counter Med Misuse Over the Past 12 Months: No Hx of Inhalent Misuse Over the Past 12 Months: No Hx of Organic Substance Use Over the Past 12 Months: Yes Hx of Illegal Substances/Street Drug Use Over Past 12 Months: No Admits to occasional marijuana use. 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) Marital Status: Single Number Of Children: None Hx Traumatic Life Events: Yes Psychological Trauma History Comment: reports, but declines to discuss Patient History Medical History Celiac disease Family History Other Family history non-contributory Social History Smoking Status: Unknown if ever smoked Hx Alcohol Use: Yes Alcohol type: hard liquor Preferred Language: Arabic Communication Ability: Effective Beliefs That Will Affect Care: None marital status: Single Current Living Situation: Other Current Living Situation Comment: pt is student at [employer] - has roommates current occupational status: student Feels Safe at Home: Yes Assistive Devices: None Review of Systems Review of Systems: Constitutional: admits to headache Cardiovascular: denied Respiratory: denied Gastrointestinal: reports nausea Neurological: denied Psychiatric: denies symptoms other than stated above Total of at least 10 systems reviewed, pertinent positives as above and in HPI. Physical Exam Psychiatric: Orientation: alert, oriented x 3 and cooperative (though dramatcally minimizing) Apperance: appropriately dressed and + disheveled Eye Contact: + fair eye contact Motor Behavior: no abnormal motor movements (observed while seated in bed) Speech: normal rate/rhythm/volume of speech Affect: mood congruent with affect (though not consistent with events leading to admission) Mood: + anxious mood (admitting to near daily panic attacks); no depressed mood ("a lot better recently, I have a solid handle on it") Thought Process: goal directed thought process, clear/coherent thought process and thought association intact Thought Content: + cognitive distortions (minimizing), + worthlessness and + loneliness; no hopelessness Suicidal Thoughts: denies suicidal thoughts denies current SI, but had a very concerning suicide attempt leading to need for medical admission Homicidal Thoughts: denies homicidal thoughts Hallucinations: no auditory hallucinations and no visual hallucinations Cognition: attention grossly intact and language grossly intact; + recent memory not intact (states she does not recall events prior to admission ) does not recall writing suicide note Estimated Intelligence: consistent with education level Insight: + poor insight (significantly minimizing symptoms) Judgement: + poor judgement Exam Statement: A physical exam was performed on the medical floor prior to admission to the unit by Dr. Hudson Saha MD. I accept that physical as correct/medical clearance for the inpatient physical exam.
[2020-06-26] MEDS ORDERED: MAGNESIUM HYDROXIDE SUSP 30 ML UDC PO PRN (15:21)
[2020-06-26] MEDS ORDERED: LORazepam 1 MG TAB PO PRN (15:21)
[2020-06-26] MEDS ORDERED: SODIUM CHLORIDE 0.65% NA SOLN 45 ML (OCEAN) PRN (15:21)
[2020-06-26] MEDS ORDERED: hydrOXYzine HCl 25 MG TAB PO PRN ×2 (15:21)
[2020-06-26] MEDS ORDERED: ACETAMINOPHEN 325 MG TAB PO PRN (15:21)
[2020-06-26] MEDS ORDERED: BISMUTH SUBSALICYLATE LIQD 236 ML PO PRN (15:21)
[2020-06-26] MEDS ORDERED: ALUMINUM/MAGNESIUM SUSP 30 ML UDC PO PRN (15:21)
--- NOTE | 2020-06-26 16:54 | Discharge Summary ---
Date of Service June 26, 2020 Principal Diagnosis Alcohol overdose, suicide attempt Discharge Exam Constitutional WD/WN, vitals as above Eyes EOM intact bilaterally; no conjunctival abnormality ENMT external ear and nose normal, oropharynx normal Neck trachea midline, no thyromegaly normal visual inspection Respiratory normal respiratory effort, lungs clear to auscultation no respiratory distress Cardiovascular RRR, no murmur, no edema Gastrointestinal (Abdomen) Inspection/Auscultation: abdomen normal to inspection; abdomen not distended Musculoskeletal no cyanosis or clubbing, extremities motor strength 5/5 Skin no rashes, warm and dry Neurologic moves all extremities and awake Psychiatric Orientation: alert, oriented to person and cooperative Discharge Data Allergies Allergy/AdvReac Type Severity Reaction Status Date / Time Penicillins Allergy Intermediate Hives Verified 06/25/20 17:56 banana Allergy Unknown EMS Verified 06/25/20 17:56 gluten Allergy Unknown EMS Verified 06/25/20 17:56 milk Allergy Unknown Unknown Verified 06/26/20 15:50 soybean Allergy Unknown EMS Verified 06/25/20 17:56 strawberry Allergy Unknown EMS Verified 06/25/20 17:56 wheat Allergy Unknown EMS Verified 06/25/20 17:56 Hospital Course (1) Suicide attempt: Drank 1/5 of rum and then fell asleep in a full bathtub with the intention of drowning herself. Suicide note was left. - Involuntary commitment with a 302. - Discharged to Behavioral Health Unit (2) Alcohol abuse: Reports mostly binge-drinking with some days of not drinking. - No alcohol withdrawal symptoms in the hospital. None recently with her current level of drinking. Total Time Total Time Spent Total Time Spent (In Minutes): 35 Discharge Plan Discharge Items Reason For Visit: MAJOR DEPRESSIVE DISORDER Medications and DC Order Prescriptions: No Action norethindrone-e.estradiol-iron [Blisovi 24 Fe] 1 mg-20 mcg (24)/75 mg (4) tablet 1 tab PO DAILY RF: 0 Admission Data Admit Date/Time: 06/26/20 15:11 Attending Provider: Carmella Gooden Admit Provider: Carmella Gooden Primary Care Provider: [facility] Coding Level of Care Code D/C Day Management >30 mins Diagnoses Suicide attempt T14.91XA Alcohol abuse F10.10
--- NOTE | 2020-06-27 09:09 | Psychiatric Progress Note ---
Date of Service June 27, 2020 Impression / Recommendations Impression 19-year-old female admitted involuntarily for psychiatric treatment on 06/26/20 after <24 hour stay on the medical floor following presentation to the ED for alcohol intoxication, having written a suicide note and goodbye text messages to friends/roommates. Admission BAL 448, has had 4 ER visits in 2 years related to alcohol intoxication. Inpatient psychiatric treatment is medically necessary as patient is minimizing events leading to her admission and remains at acute risk of suicide if discharged prematurely. (1) Suicide attempt: 06/26 - Denies SI presently, but had very concerning behavior prior to admission which appears to be premeditated suicide attempt - Admitted to a locked inpatient behavioral health unit, on q15 minute safety checks - Encourage medication initiation/adjustments as indicated - Encourage participation in group and recreational therapies - Gather collateral information from outpatient providers - Suggest family meeting to involve outpatient supports in safety planning - Arrange appropriate aftercare 06/27 -encourage patient to process stressors that led to her suicide attempt. (2) Depression: 06/26 - Diagnostic picture is admittedly clouded by minimization of symptoms by the patient. She admits to history of behaviors which are consistent with major depressive episodes in the past; however describes her recent mood as "solid" and denies depressive symptoms within the past few weeks - History provided by roommates suggests increased isolative behaviors and discord with friendships. She did endorse decreased concentration, poor motivation, crying spells, and hopelessness during conversation with our liaison, but under reported these during encounter with this provider - Recommendation for medications and outpatient therapy was suggested, patient is presently declining both - will continue to offer education and information on these recommendations. - Encourage patient to engage in group and recreational programming, assist with development of healthy and effective coping strategies - Encourage family meeting with outpatient supports (parents flying into the area) - Assist patient with completion of a safety plan 06/27 - Pt remains uninterested in medication, has had improvement in mood w/ daily devotionals, regular exercise. He is willing for outpatient therapy, will need a therapist who can see her while she is in [place] and then in [place] when she returns home for the summer. -She is focused on getting out of the hospital soon as possible, discussed the need for a period of monitoring given the severity of her suicide attempt, as well as the importance of having a good discharge and safety plan. Her brother and father are here in [facility], and mother is in [place]. She may benefit from some one-on-one counseling time to process the stressors in her friend relationships. (3) Anxiety: 06/26 - Pt meets criteria for generalized anxiety disorder with panic attacks. She is declining at this time to consider medications. Will continue to offer education and information, encouraging trial of an SSRI - Hydroxyzine as needed for acute anxiety and/or insomnia - Assist with development of healthy and effective coping strategies (4) Alcohol abuse: 06/26 - AWSS protocol - prn lorazepam as needed per protocol - Pt is able to identify past issues with alcohol use, but reports feeling as though her current use in not concerning as she has cut down in consumption. - Pt has had 4 presentations to the ED for alcohol related concerns, and is not of legal age for alcohol use - Pt would benefit from formal D&A counseling to address these concerns - Continue to explore motivation for change - Brief intervention was offered and accepted Intervention was greater than 5 min in length. Brief interventions include: 1. Assess Readiness to Quit, 2. Advise: Help Patient to Reduce or Abstain from Alcohol, 3. Agree: Set Specific, Feasible Goals, 4. Assist: Anticipate barriers, Problem-Solving Solutions. Social work to 5. Arrange: Referrals to appropriate treatment. Summary of intervention: The patient is in precontemplation stage with regards to transtheoretical model of change. The patient is advised to decrease alcohol consumption due to depressant effects and risk of interactions with prescription medications. The patient was advised of recommendations for abstinence from alcohol and other abusable substances and to attend substance abuse treatment at discharge, and will be provided with recovery materials to continue to education self on how to cope with their condition without drinking. 06/27 - Not scoring on AWSS, will d/c. - Limited insight, continue w/ motivational interviewing. Not interested in abstinence, plans to avoid hard alcohol. Less opportunity for heavy drinking when at home over the summer. (5) Celiac disease: 06/26 - Appropriate diet, dietary consultation if indicated - Monitor nutritional intake given history of disordered eating behaviors Risk Factors Assessment Male: No : Yes Do You Have Access To A Gun?: No Substance Use Disorders: Yes Previous Attempt: Yes Previous Psychiatric Hospitalization: No Hopelessness: Yes Smoker: No Protective Factors Assessment : No Responsible for Young Children: No Stable Relationships: No Supportive Family: Yes Interval History Chief Complaint "All right". Review of Systems Notes Stomach is "queasy," and throat is raw from vomiting, but denies other symptoms of alcohol withdrawal Sleep Information Total Hours of Sleep: 6 Sleep Comments: pt on q-15 minute checks Meal Information Percent Meal Consumed - Dinner: 70 Subjective Subjective Patient was seen & assessed and interval progress reviewed with treatment team. Staff report she signed ROIs for her family and attended evening group. She reports anxiety about being here in the hospital, stating she is missing the little bit of time that is left in the semester to spend with her friend group, as they are seniors and graduating. She talked with one of her friends, the one who brought her into the hospital, but says they did not discuss the events that led to hospitalization in any detail. She is unsure of the status of the friendship, stating that she is not certain if these friends want to end the relationship, or if they did not invite her to the green party because she "has had problems with alcohol." She thought that she had been doing better with respect to her drinking over the past month, as she was avoiding liquor and drinking hard seltzers instead. She reports mood has been low for a few months, but better over the past month as she had been exercising more and doing daily devotionals, both of which helped her mood. She says the suicide attempt was impulsive and triggered by "trouble with friends," as she "felt betrayed by them." Apparently her friend group, who are seniors, were throwing a green party the night before and did not invite her. It involved a "crate race," where teams of people race to finish a case of wine, case of beer, fifth of liquor, and four Locos. She was upset about this, but decided to "sleep on it," and when she woke the following morning felt "really pissed off," so started drinking as "didn't want to feel feelings." She thinks that she started having suicidal thoughts after she started drinking. She denies suicidal thoughts today, and would like to be discharged as quickly as possible, as she feels anxious about missing out on spending time with her friends who are about to graduate. She is also anxious about the status of the friendship, but would like to talk to them about it in person. Her brother and father flew cross-country and are in [place], and she has been talking to them on the phone. She is willing for therapy, plans to go home to [place] for the summer, but states she may have to stay here a little bit longer, as she has fallen behind in her course work. Physical Exam Psychiatric Orientation: alert, oriented x 3 and cooperative Apperance: appropriately dressed, appropriately groomed and appeared stated age Dressed in sweatpants, T-shirt, and button-down flannel shirt. Long hair, good hygiene and grooming. Seated in no acute distress. Eye Contact: + fair eye contact Motor Behavior: steady gait and station and no abnormal motor movements Speech: normal rate/rhythm/volume of speech Affect: + anxious affect Mood: + anxious mood Thought Process: goal directed thought process Minimizes drinking and suicide attempt Suicidal Thoughts: denies suicidal thoughts Homicidal Thoughts: denies homicidal thoughts Hallucinations: no auditory hallucinations and no visual hallucinations Cognition: attention grossly intact and language grossly intact; + recent memory not intact (Does not recall events while intoxicated) Estimated Intelligence: average estimated intelligence Insight: + impaired insight Judgement: + impaired judgement Vital Signs (Past 24 Hours) Last Vital Signs Temp 36.8 C 06/27/20 06:42 Pulse 70 06/27/20 06:43 Resp 16 06/27/20 06:42 BP 99/63 L 06/27/20 06:43 Pulse Ox 97 06/26/20 19:30 Results & Data ([facility]) Current Inpatient Medications Current Inpatient Medications: Current Inpatient Medications Acetaminophen (Acetaminophen 325 Mg Tab) 650 mg PO Q4H PRN PRN Reason: Headache or Minor Fever Stop: 07/26/20 15:20 Al Hydrox/Mg Hydrox/Simethicone (Aluminum/Magnesium Susp 30 Ml Udc) 30 ml PO Q4H PRN PRN Reason: GI Upset Stop: 07/26/20 15:20 Bismuth Subsalicylate (Bismuth Subsalicylate Liqd 236 Ml) 15 ml PO PRN PRN PRN Reason: Loose Stool Stop: 07/26/20 15:20 Hydroxyzine HCl (Hydroxyzine Hcl 25 Mg Tab) 50 mg PO HSZ PRN PRN Reason: Insomnia Stop: 07/26/20 15:20 Hydroxyzine HCl (Hydroxyzine Hcl 25 Mg Tab) 25 mg PO Q4H PRN PRN Reason: Anxiety Stop: 07/26/20 15:20 Lorazepam (Lorazepam 1 Mg Tab) 1 - 3 mg PO UD PRN; Protocol PRN Reason: EtoH Withdrawal AWSS 6-10+ Stop: 07/26/20 15:20 Magnesium Hydroxide (Magnesium Hydroxide Susp 30 Ml Udc) 30 ml PO DAILY PRN PRN Reason: Constipation Stop: 07/26/20 15:20 Sodium Chloride (Sodium Chloride 0.65% Na Soln 45 Ml ([place])) 1 - 2 sprays NA PRN PRN PRN Reason: Nasal Dryness/Congestion Stop: 07/26/20 15:20 (1) Depression Depression Type: unspecified Qualified Code(s): F32.9 - Major depressive di sorder, single episode, unspecified
--- NOTE | 2020-06-28 09:14 | Psychiatric Progress Note ---
Date of Service June 28, 2020 Impression / Recommendations Impression 19-year-old female admitted involuntarily for psychiatric treatment on 06/26/20 after <24 hour stay on the medical floor following presentation to the ED for alcohol intoxication, having written a suicide note and goodbye text messages to friends/roommates. Admission BAL 448, has had 4 ER visits in 2 years related to alcohol intoxication. Inpatient psychiatric treatment is medically necessary as patient is minimizing events leading to her admission and remains at acute risk of suicide if discharged prematurely. (1) Suicide attempt: 06/26 - Denies SI presently, but had very concerning behavior prior to admission which appears to be premeditated suicide attempt - Admitted to a locked inpatient behavioral health unit, on q15 minute safety checks - Encourage medication initiation/adjustments as indicated - Encourage participation in group and recreational therapies - Gather collateral information from outpatient providers - Suggest family meeting to involve outpatient supports in safety planning - Arrange appropriate aftercare 06/27 -encourage patient to process stressors that led to her suicide attempt. 06/28 - Denies active SI, gradually opening up more with staff - Family meeting this afternoon - Assist with completion of written safety plan (2) Depression: 06/26 - Diagnostic picture is admittedly clouded by minimization of symptoms by the patient. She admits to history of behaviors which are consistent with major depressive episodes in the past; however describes her recent mood as "solid" and denies depressive symptoms within the past few weeks - History provided by roommates suggests increased isolative behaviors and discord with friendships. She did endorse decreased concentration, poor motivat ion, crying spells, and hopelessness during conversation with our liaison, but under reported these during encounter with this provider - Recommendation for medications and outpatient therapy was suggested, patient is presently declining both - will continue to offer education and information on these recommendations. - Encourage patient to engage in group and recreational programming, assist with development of healthy and effective coping strategies - Encourage family meeting with outpatient supports (parents flying into the area) - Assist patient with completion of a safety plan 06/27 - Pt remains uninterested in medication, has had improvement in mood w/ daily devotionals, regular exercise. He is willing for outpatient therapy, will need a therapist who can see her while she is in [place] and then in [place] when she returns home for the summer. -She is focused on getting out of the hospital soon as possible, discussed the need for a period of monitoring given the severity of her suicide attempt, as well as the importance of having a good discharge and safety plan. Her brother and father are here in [facility], and mother is in [place]. She may benefit from some one-on-one counseling time to process the stressors in her friend relationships. 06/28 - Continue recommendations as above - mood improved since initial admission - Refer for outpatient therapy options - Family support meeting this afternoon (3) Anxiety: 06/26 - Pt meets criteria for generalized anxiety disorder with panic attacks. She is declining at this time to consider medications. Will continue to offer education and information, encouraging trial of an SSRI - Hydroxyzine as needed for acute anxiety and/or insomnia - Assist with development of healthy and effective coping strategies (4) Alcohol abuse: 06/26 - AWSS protocol - prn lorazepam as needed per protocol - Pt is able to identify past issues with alcohol use, but reports feeling as though her current use in not concerning as she has cut down in consumption. - Pt has had 4 presentations to the ED for alcohol related concerns, and is not of legal age for alcohol use - Pt would benefit from formal D&A counseling to address these concerns - Continue to explore motivation for change - Brief intervention was offered and accepted Intervention was greater than 5 min in length. Brief interventions include: 1. Assess Readiness to Quit, 2. Advise: Help Patient to Reduce or Abstain from Alcohol, 3. Agree: Set Specific, Feasible Goals, 4. Assist: Anticipate barriers, Problem-Solving Solutions. Social work to 5. Arrange: Referrals to appropriate treatment. Summary of intervention: The patient is in precontemplation stage with regards to transtheoretical model of change. The patient is advised to decrease alcohol consumption due to depressant effects and risk of interactions with prescription medications. The patient was advised of recommendations for abstinence from alcohol and other abusable substances and to attend substance abuse treatment at discharge, and will be provided with recovery materials to continue to education self on how to cope with their condition without drinking. 06/27 - Not scoring on AWSS, will d/c. - Limited insight, continue w/ motivational interviewing. Not interested in abstinence, plans to avoid hard alcohol. Less opportunity for heavy drinking when at home over the summer. (5) Celiac disease: 06/26 - Appropriate diet, dietary consultation if indicated - Monitor nutritional intake given history of disordered eating behaviors Risk Factors Assessment Male: No : Yes Do You Have Access To A Gun?: No Substance Use Disorders: Yes Previous Attempt: Yes Previous Psychiatric Hospitalization: No Hopelessness: Yes Smoker: No Protective Factors Assessment : No Responsible for Young Children: No Stable Relationships: No Supportive Family: Yes Interval History Identifying Information SANFORD JAUREGUI is a 19-year-old F [employer] who currently resides in an apartment with 3 roommates. Pt admits to a history of untreated depression and anxiety, and was admitted on 06/26/20 15:11 on a 302 involuntary commitment for depression and a suicide attempt by alcohol intoxication and what seems to be attempted drowning. Chief Complaint "Um, for the past 3-lara months I've been having some trouble." Review of Systems Notes Constitutional: denied Cardiovascular: denied Respiratory: denied Gastrointestinal: denied Neurological: denied Psychiatric: denies symptoms other than stated above Total of at least 10 systems reviewed, pertinent positives as above and in HPI. Sleep Information Total Hours of Sleep: 6.5 Sleep Comments: pt on q-15 minute checks Meal Information Percent Meal Consumed - Breakfast: 100 Percent Meal Consumed - Lunch: 85 Percent Meal Consumed - Dinner: 60 Subjective Subjective Patient was seen & assessed and interval progress reviewed with nursing and social work. Staff report the patient has been participating in group programming and has been supportive of peers. She continues to be somewhat superficial in conversations per report, possibly still minimizing events leading to admission. Pt was seen today to assess progress since admission. Pt states she is doing well thus far. She admits "for the past 3-lara months I've been having some trouble, to the point where it was getting difficult to do the little things." Pt admits that she was able to recognize this decline in mood and began using coping strategies, "that really were working, the last 2-3 weeks were getting a lot better." Pt was reassured that staff is aware of the progress she had started to make, but our hope was to focus on ways to maintain that progress even in the face of acute stressors. Pt states she has been working through the patient handbook, specifically focusing on stress management and self-esteem. She denies continued SI and admits to gradual improvement in mood. Pt continues to decline medications but is considering a support meeting and is open to outpatient therapy. Pt denies other needs or concerns today. Physical Exam Psychiatric Orientation: alert, oriented x 3 and cooperative Apperance: appropriately dressed, appropriately groomed and appeared stated age Eye Contact: good eye contact Motor Behavior: steady gait and station and no abnormal motor movements Speech: normal rate/rhythm/volume of speech Affect: euthymic affect Mood: + depressed mood (improving) Thought Process: goal directed thought process and clear/coherent thought process Thought Content: reality based without delusions; no hopelessness Suicidal Thoughts: denies suicidal thoughts and denies suicidal intent Homicidal Thoughts: denies homicidal thoughts Hallucinations: no auditory hallucinations and no visual hallucinations Cognition: attention grossly intact and language grossly intact Estimated Intelligence: consistent with education level Insight: + fair insight Judgement: + fair judgement Vital Signs (Past 24 Hours) Last Vital Signs Temp 36.6 C 06/28/20 06:41 Pulse 59 L 06/28/20 06:41 Resp 16 06/28/20 06:41 BP 122/75 06/28/20 06:41 Pulse Ox 97 06/26/20 19:30 Results & Data ([facility]) Current Inpatient Medications Current Inpatient Medications: Current Inpatient Medications Acetaminophen (Acetaminophen 325 Mg Tab) 650 mg PO Q4H PRN PRN Reason: Headache or Minor Fever Stop: 07/26/20 15:20 Al Hydrox/Mg Hydrox/Simethicone (Aluminum/Magnesium Susp 30 Ml Udc) 30 ml PO Q4H PRN PRN Reason: GI Upset Stop: 07/26/20 15:20 Bismuth Subsalicylate (Bismuth Subsalicylate Liqd 236 Ml) 15 ml PO PRN PRN PRN Reason: Loose Stool Stop: 07/26/20 15:20 Hydroxyzine HCl (Hydroxyzine Hcl 25 Mg Tab) 50 mg PO HSZ PRN PRN Reason: Insomnia Stop: 07/26/20 15:20 Hydroxyzine HCl (Hydroxyzine Hcl 25 Mg Tab) 25 mg PO Q4H PRN PRN Reason: Anxiety Stop: 07/26/20 15:20 Magnesium Hydroxide (Magnesium Hydroxide Susp 30 Ml Udc) 30 ml PO DAILY PRN PRN Reason: Constipation Stop: 07/26/20 15:20 Sodium Chloride (Sodium Chloride 0.65% Na Soln 45 Ml ([place])) 1 - 2 sprays NA PRN PRN PRN Reason: Nasal Dryness/Congestion Stop: 07/26/20 15:20 Mental Health & Subst Abuse Tx [employer]or [employer] Name of [employer]or [employer]: [facility] Phone Number for [employer]or [employer]: [phone] Case Management Appointment Comment: Will follow up with you via telephone Post Discharge Appointments Primary Care Physician Name Of Family Doctor: PB Primary Care Provider Appointment Comment: Follow up as needed Contact Information Discharge Phone Number: [phone] Discharge [address]: [address] [place] [address] (1) Depression Depression Type: unspecified Qualified Code(s): F32.9 - Major depressive disorder, single episode, unspecified
--- NOTE | 2020-06-29 14:35 | Discharge Summary ---
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 LINE AT , go to the [facility] walk-in center at [address], [place], or go to the closest Emergency Room. 5. Avoid alcohol and un-prescribed drugs. 6. You have been provided with the Mental Health Advance Directives Pamphlet for your review. AFTERCARE APPOINTMENTS: * Please call your insurance company prior to your scheduled appointment to confirm your aftercare providers are covered. Take your insurance information to your appointments. WHO TO CALL AND WHEN: Medical Emergencies: For questions or emergencies related to your hospital stay, please contact the Inpatient Behavioral Health Unit at [phone]. A needle polisher is on-call 22/09 for the Behavioral Health Unit for emergencies At any time you feel your situation is an emergency, you may also call 911 immediately. Pending Studies at Discharge: No Stand-Alone Forms: [facility], Smoking Cessation Medications and DC Order Prescriptions: Continued norethindrone-e.estradiol-iron [Blisovi 24 Fe] 1 mg-20 mcg (24)/75 mg (4) tablet 1 tab PO DAILY RF: 0 Discharge Orders: Discharge Order (Routine); Ordered 06/29/20 Ordered By: Parveen White/Other Patient Handouts: Understanding Alcoholism Admission Data Admit Date/Time: 06/26/20 15:11 Attending Provider: Carmella Gooden Admit Provider: Carmella Gooden Primary Care Provider: [facility] Other Interventions: Discharge Summary Assessment (RN) Last Done: 06/29/20 14:40 [place] [address] D/C day mgmt > 30 min Patient Type Established Medical Decision Making Moderate Complexity Diagnoses Suicide attempt T14.91XA Depression F32.9 Depression Type: unspecified Anxiety F41.9 Alcohol abuse F10.10 Celiac disease K90.0 Time Spent (min) 60
== END 2020-06-29 15:20 | disposition home or self-care (01) | DRG 881 ==
LOC: 3S 15:11

== ENCOUNTER 2020-08-20 20:33 | Inpatient (IN) ==
[2020-08-20] MEDS ORDERED: ALUMINUM/MAGNESIUM SUSP 30 ML UDC PO PRN (20:50)
[2020-08-20] MEDS ORDERED: SODIUM CHLORIDE 0.65% NA SOLN 45 ML (OCEAN) PRN (20:50)
[2020-08-20] MEDS ORDERED: BISMUTH SUBSALICYLATE LIQD 236 ML PO PRN (20:50)
[2020-08-20] MEDS ORDERED: ACETAMINOPHEN 325 MG TAB PO PRN (20:50)
[2020-08-20] MEDS ORDERED: hydrOXYzine HCl 25 MG TAB PO PRN ×2 (20:50)
[2020-08-20] MEDS ORDERED: MAGNESIUM HYDROXIDE SUSP 30 ML UDC PO PRN (20:50)
[2020-08-21] MEDS: ESCITALOPRAM OXALATE 10 MG TAB PO SCH (12:35)
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
[2020-08-22] MEDS: ESCITALOPRAM OXALATE 10 MG TAB PO SCH (08:36)
--- NOTE | 2020-08-22 11:52 | Psychiatric Progress Note ---
Date of Service August 22, 2020 Impression / Recommendations Impression 20-year-old female presenting with depression and suicidal thoughts. Patient will benefit from inpatient hospitalization for safety, stabilization, medication management. (1) Major depression: The patient was admitted to the [facility] ([facility] unit) on every 15 minute checks (behavioral with suicide precautions for safety. The patient will participate in group, recreational, and milieu therapies and will be offered additional individual and family sessions as clinically appropriate. 08/22--Patient without side effects, will plan to continue for now and increase to 20mg tomorrow. Medications: Lexapro 10 mg p.o. daily Ativan 1 mg p.o. every 4 hours as needed anxiety Inventory Assets Strengths: Intelligence Needs: Insight Risk Factors Assessment Male: No : Yes Do You Have Access To A Gun?: No Health Problems: No Mental Health Diagnoses: Yes Substance Use Disorders: No Previous Attempt: Yes Protective Factors Assessment : No Employed: Yes Stable Relationships: Yes Supportive Family: Yes Good Rapport with Provider: Yes Interval History Chief Complaint "I'm doing okay". Review of Systems Sleep Information Total Hours of Sleep: 6.5 Sleep Comments: pt on q-15 minute checks Meal Information Percent Meal Consumed - Breakfast: 100 Percent Meal Consumed - Lunch: 85 Percent Meal Consumed - Dinner: 60 Subjective Subjective Patient was seen & assessed and interval progress reviewed with treatment team nursing and social work Patient seen this morning reading in her room. She is interacting appropriately with peers and attending groups. She denies any adverse effects of the medications, none observed. She was informed of the plan to increase her medication to 20mg and expressed understanding and agreement. She hasn't required the use of PRN ativan fro panic attacks as of yet, but was encouraged to take if feeling anxious. Regarding her mood, patient still has low mood with depressed thoughts. Reports a fair night of sleep, and decent appetite. I spent 30 minutes with the patient, 50% of which was dedicated to counselling and coordination of care. Physical Exam Psychiatric Orientation: alert and oriented x 3 Apperance: appropriately groomed Eye Contact: + fair eye contact Motor Behavior: no abnormal motor movements Speech: normal rate/rhythm/volume of speech Affect: + depressed affect, + anxious affect and + tearful affect Mood: + depressed mood and + anxious mood Thought Process: linear/logical thought process Thought Content: reality based without delusions Suicidal Thoughts: + reports suicidal thoughts Homicidal Thoughts: denies homicidal thoughts Hallucinations: no auditory hallucinations Cognition: recent memory grossly intact Estimated Intelligence: + above average estimated intelligence Insight: + poor insight Judgement: + fair judgement Vital Signs (Past 24 Hours) Last Vital Signs Temp 36.7 C 08/22/20 10:24 Pulse 56 L 08/22/20 10:24 Resp 16 08/22/20 10:24 BP 89/58 L 08/22/20 10:24 Pulse Ox 97 08/22/20 10:24 Results & Data ([facility]) Current Inpatient Medications Current Inpatient Medications: Current Inpatient Medications Acetaminophen (Acetaminophen 325 Mg Tab) 650 mg PO Q4H PRN PRN Reason: Headache or Minor Fever Stop: 09/19/20 20:49 Al Hydrox/Mg Hydrox/Simethicone (Aluminum/Magnesium Susp 30 Ml Udc) 30 ml PO Q4H PRN PRN Reason: GI Upset Stop: 09/19/20 20:49 Bismuth Subsalicylate (Bismuth Subsalicylate Liqd 236 Ml) 15 ml PO PRN PRN PRN Reason: Loose Stool Stop: 09/19/20 20:49 Escitalopram Oxalate (Escitalopram Oxalate 10 Mg Tab) 10 mg PO QAM YARITZA Stop: 09/20/20 11:29 Last Admin: 08/22/20 08:36 Dose: 10 mg Documented by: Lorazepam (Lorazepam 1 Mg Tab) 1 mg PO Q4 PRN PRN Reason: Anxiety Stop: 09/20/20 11:12 Magnesium Hydroxide (Magnesium Hydroxide Susp 30 Ml Udc) 30 ml PO DAILY PRN PRN Reason: Constipation Stop: 09/19/20 20:49 Sodium Chloride (Sodium Chloride 0.65% Na Soln 45 Ml ([place])) 1 - 2 sprays NA PRN PRN PRN Reason: Nasal Dryness/Congestion Stop: 09/19/20 20:49 Mental Health & Subst Abuse Tx Therapist Name of Therapist: [facility] Post Discharge Appointments Contact Information Discharge Discharge Address: [address] [place] [address] [id number] (1) Major depression Major depression recurrence: single episode Active/Remission status: currently active Major depression episode severity: moderate Qualified Code(s): F32.1 - Major depressive disorder, single episode, moderate
[2020-08-22] MEDS: LORazepam 1 MG TAB PO PRN (22:18)
[2020-08-23] MEDS: ESCITALOPRAM OXALATE 20 MG TAB PO SCH (08:44)
--- NOTE | 2020-08-23 11:26 | Psychiatric Progress Note ---
Date of Service August 23, 2020 Impression / Recommendations Impression 20-year-old female presenting with depression and suicidal thoughts. Patient will benefit from inpatient hospitalization for safety, stabilization, medication management. (1) Major depression: The patient was admitted to the [facility] ([facility] mental health unit) on every 15 minute checks (behavioral with suicide precautions for safety. The patient will participate in group, recreational, and milieu therapies and will be offered additional individual and family sessions as clinically appropriate. 08/23--patient now taking 20 mg of Lexapro daily. Continues with depressed mood and occasional SI 08/22--Patient without side effects, will plan to continue for now and increase to 20mg tomorrow. Medications: Lexapro 10 mg p.o. daily Ativan 1 mg p.o. every 4 hours as needed anxiety Inventory Assets Strengths: Intelligence Needs: Insight Risk Factors Assessment Male: No : Yes Do You Have Access To A Gun?: No Health Problems: No Mental Health Diagnoses: Yes Substance Use Disorders: No Previous Attempt: Yes Protective Factors Assessment : No Employed: Yes Stable Relationships: Yes Supportive Family: Yes Good Rapport with Provider: Yes Interval History Chief Complaint "I'm okay". Review of Systems Sleep Information Total Hours of Sleep: 6.5 Sleep Comments: pt on q-15 minute checks Meal Information Percent Meal Consumed - Breakfast: 100 Percent Meal Consumed - Lunch: 80 Percent Meal Consumed - Dinner: 80 Subjective Subjective Patient was seen & assessed and interval progress reviewed with treatment team nursing and social work Patient reports compliance with medication. No side effects observed or reported. Patient is attending all groups and interacting appropriately with peers. She is eating her meals and sleeping well. Did take Ativan last night for feelings of anxiety. Regarding her mood, patient still is endorsing low mood with occasional suicidal thoughts, although states that they have decreased since coming here. She also has feelings of self-deprecation for having had to come into the mental unit once again. Supportive counseling offered. I spent 30 minutes with the patient, 50% of which was dedicated to counselling and coordination of care. Physical Exam Psychiatric Orientation: alert and oriented x 3 Apperance: appropriately groomed Eye Contact: + fair eye contact Motor Behavior: no abnormal motor movements Speech: normal rate/rhythm/volume of speech Affect: + depressed affect, + anxious affect and + tearful affect Mood: + depressed mood and + anxious mood Thought Process: linear/logical thought process Thought Content: reality based without delusions Suicidal Thoughts: + reports suicidal thoughts Homicidal Thoughts: denies homicidal thoughts Hallucinations: no auditory hallucinations Cognition: recent memory grossly intact Estimated Intelligence: + above average estimated intelligence Insight: + poor insight Judgement: + fair judgement Vital Signs (Past 24 Hours) Last Vital Signs Temp 36.6 C 08/23/20 06:46 Pulse 71 08/23/20 06:47 Resp 16 08/23/20 06:46 BP 90/56 L 08/23/20 06:47 Pulse Ox 97 08/22/20 10:24 Results & Data ([facility]) Current Inpatient Medications Current Inpatient Medications: Current Inpatient Medications Acetaminophen (Acetaminophen 325 Mg Tab) 650 mg PO Q4H PRN PRN Reason: Headache or Minor Fever Stop: 09/19/20 20:49 Al Hydrox/Mg Hydrox/Simethicone (Aluminum/Magnesium Susp 30 Ml Udc) 30 ml PO Q4H PRN PRN Reason: GI Upset Stop: 09/19/20 20:49 Bismuth Subsalicylate (Bismuth Subsalicylate Liqd 236 Ml) 15 ml PO PRN PRN PRN Reason: Loose Stool Stop: 09/19/20 20:49 Escitalopram Oxalate (Escitalopram Oxalate 20 Mg Tab) 20 mg PO QAM YARITZA Stop: 09/22/20 08:59 Last Admin: 08/23/20 08:44 Dose: 20 mg Documented by: Lorazepam (Lorazepam 1 Mg Tab) 1 mg PO Q4 PRN PRN Reason: Anxiety Stop: 09/20/20 11:12 Last Admin: 08/22/20 22:18 Dose: 1 mg Documented by: Magnesium Hydroxide (Magnesium Hydroxide Susp 30 Ml Udc) 30 ml PO DAILY PRN PRN Reason: Constipation Stop: 09/19/20 20:49 Sodium Chloride (Sodium Chloride 0.65% Na Soln 45 Ml ([place])) 1 - 2 sprays NA PRN PRN PRN Reason: Nasal Dryness/Congestion Stop: 09/19/20 20:49 Mental Health & Subst Abuse Tx Psychiatrist Name of Psychiatrist: Chester Interiano Psychiatrist's [id number] Date of Appointment with Psychiatrist: 08/29/20 Time of Appointment with Psychiatrist: 3:00pm Psychiatric Appointment Comment: 1sr appointment will be telehealth.[id number] Therapist Name of Therapist: Jayro Guillermo Therapist's Date of Therapist Appointment: 08/30/20 Time of Therapist Appointment: 5:30 p.m. (In person) Therapy Appointment Comment: [address], [address], [place] Post Discharge Appointments Contact Information Discharge Discharge Address: [address], [address], [place] (1) Major depression Major depression recurrence: single episode Active/Remission status: currently active Major depression episode severity: moderate Qualified Code(s): F32.1 - Major depressive disorder, single episode, moderate
[2020-08-23] MEDS: LORazepam 1 MG TAB PO PRN (21:28)
[2020-08-24] MEDS: ESCITALOPRAM OXALATE 20 MG TAB PO SCH (09:04)
--- NOTE | 2020-08-24 12:52 | Psychiatric Progress Note ---
Date of Service August 24, 2020 Impression / Recommendations Impression 20-year-old female presenting with depression and suicidal thoughts. Patient will benefit from inpatient hospitalization for safety, stabilization, medication management. (1) Major depression: The patient was admitted to the [facility] ([facility] mental health unit) on every 15 minute checks (behavioral with suicide precautions for safety. The patient will participate in group, recreational, and milieu therapies and will be offered additional individual and family sessions as clinically appropriate. 08/24-- Patient continues on Lexapro without side effects. Does continue to endorse anxiety, especially around night time, and reports benefit of low dose Ativan administration on both anxiety and sleep. 08/23--patient now taking 20 mg of Lexapro daily. Continues with depressed mood and occasional SI 08/22--Patient without side effects, will plan to continue for now and increase to 20mg tomorrow. Medications: Lexapro 10 mg p.o. daily Ativan 1 mg p.o. every 12 hours as needed anxiety Inventory Assets Strengths: Intelligence Needs: Insight Risk Factors Assessment Male: No : Yes Do You Have Access To A Gun?: No Health Problems: No Mental Health Diagnoses: Yes Substance Use Disorders: No Previous Attempt: Yes Protective Factors Assessment : No Employed: Yes Stable Relationships: Yes Supportive Family: Yes Good Rapport with Provider: Yes Interval History Chief Complaint "I think I am starting to feel better". Review of Systems Sleep Information Total Hours of Sleep: 7.5 Sleep Comments: pt on q-15 minute checks Meal Information Percent Meal Consumed - Breakfast: 30 Percent Meal Consumed - Lunch: 80 Percent Meal Consumed - Dinner: 70 Subjective Subjective Patient was seen & assessed and interval progress reviewed with treatment team, nursing and social work. Per nursing report, patient is compliant with her medication and slept well with approximately 7.5 hours of sleep. She is eating her meals and has a good appet ite. She is interacting appropriately with peers and engaging in group therapy regularly. Regarding her mood, patient is reporting feeling somewhat improved. She attributes the improvement to the medication as well as therapy she has received here on the unit. She has not reported any suicidal ideation today. She is benefiting from Ativan medication to address her anxiety which seems to be st ronger at night. Patient was spoken to regarding the the nature of the benzodiazepine medication, the dangers of using this alongside alcohol, the dangers of using this alongside other recreational drugs, as well as the potentially addictive nature of this medication when taken for extended periods of time. Patient expressed agreement and understanding of these risks. Risk-benefit conversation was had and we decided to continue with benzodiazepine augmentation to antidepressant initiation. I spent 30 minutes with the patient, 50% of which was dedicated to counselling and coordination of care. Physical Exam Psychiatric Orientation: alert and oriented x 3 Apperance: appropriately groomed Eye Contact: + fair eye contact Motor Behavior: no abnormal motor movements Speech: normal rate/rhythm/volume of speech Affect: + anxious affect Mood: + anxious mood Thought Process: linear/logical thought process Thought Content: reality based without delusions Suicidal Thoughts: denies suicidal thoughts Homicidal Thoughts: denies homicidal thoughts Hallucinations: no auditory hallucinations Cognition: recent memory grossly intact Estimated Intelligence: + above average estimated intelligence Insight: + fair insight Judgement: + fair judgement Vital Signs (Past 24 Hours) Last Vital Signs Temp 36.6 C 08/24/20 06:42 Pulse 71 08/24/20 06:42 Resp 16 08/24/20 06:42 BP 93/55 L 08/24/20 06:42 Pulse Ox 97 08/22/20 10:24 Results & Data ([facility]) Current Inpatient Medications Current Inpatient Medications: Current Inpatient Medications Acetaminophen (Acetaminophen 325 Mg Tab) 650 mg PO Q4H PRN PRN Reason: Headache or Minor Fever Stop: 09/19/20 20:49 Al Hydrox/Mg Hydrox/Simethicone (Aluminum/Magnesium Susp 30 Ml Udc) 30 ml PO Q 4H PRN PRN Reason: GI Upset Stop: 09/19/20 20:49 Bismuth Subsalicylate (Bismuth Subsalicylate Liqd 236 Ml) 15 ml PO PRN PRN PRN Reason: Loose Stool Stop: 09/19/20 20:49 Escitalopram Oxalate (Escitalopram Oxalate 20 Mg Tab) 20 mg PO QAM YARITZA Stop: 09/22/20 08:59 Last Admin: 08/24/20 09:04 Dose: 20 mg Documented by: Lorazepam (Lorazepam 1 Mg Tab) 1 mg PO Q4 PRN PRN Reason: Anxiety Stop: 09/20/20 11:12 Last Admin: 08/23/20 21:28 Dose: 1 mg Documented by: Magnesium Hydroxide (Magnesium Hydroxide Susp 30 Ml Udc) 30 ml PO DAILY PRN PRN Reason: Constipation Stop: 09/19/20 20:49 Sodium Chloride (Sodium Chloride 0.65% Na Soln 45 Ml ([place])) 1 - 2 sprays NA PRN PRN PRN Reason: Nasal Dryness/Congestion Stop: 09/19/20 20:49 Mental Health & Subst Abuse Tx Psychiatrist Name of Psychiatrist: Chester Interiano Psychiatrist's [phone] Date of Appointment with Psychiatrist: 08/29/20 Time of Appointment with Psychiatrist: 3:00pm Psychiatric Appointment Comment: 1sr [id number] [place] Therapist Name of Therapist: Jayro Guillermo Therapist's Date of Therapist Appointment: 08/30/20 Time of Therapist Appointment: 5:30 p.m. (In person) Therapy Appointment Comment: [address], [address], [place] Post Discharge Appointments Contact Information Discharge Discharge Address: [address] [place] [address], [address], [place] (1) Major depression Active/Remission status: currently active Major depression episode severity: moderate Major depression recurrence: single episode Qualified Code(s): F32.1 - Major depressive disorder, single episode, moderate
[2020-08-24] MEDS: LORazepam 1 MG TAB PO PRN (14:29)
[2020-08-25] MEDS: ESCITALOPRAM OXALATE 20 MG TAB PO SCH (08:49)
--- NOTE | 2020-08-25 10:09 | Psychiatric Progress Note ---
Date of Service August 25, 2020 Impression / Recommendations Impression 20-year-old female presenting with depression and suicidal thoughts. Patient will benefit from inpatient hospitalization for safety, stabilization, medication management. 08/25/20--reviewed care by Dr. Leon in italics. Impression: improving. (1) Major depression: 08/25/20--reviewed care by Dr. Leon in italics. Continue current meds and treatment plan. Risks/benefits/alternatives reviewed re: antidepressants for the treatment of depression and/or anxiety. Discussion included but was not limited to FDA warnings re: suicidality in adolescents and young adults. The patient voice understanding of black box warning and risks of psychomotor activation, etc. The patient was admitted to the [facility] ([facility] mental health unit) on every 15 minute checks (behavioral with suicide precautions for safety. The patient will participate in group, recreational, and milieu therapies and will be offered additional individual and family sessions as clinically appropriate. 08/24-- Patient continues on Lexapro without side effects. Does continue to endorse anxiety, especially around night time, and reports benefit of low dose A tivan administration on both anxiety and sleep. 08/23--patient now taking 20 mg of Lexapro daily. Continues with depressed mood and occasional SI 08/22--Patient without side effects, will plan to continue for now and increase to 20mg tomorrow. Medications: Lexapro 10 mg p.o. daily Ativan 1 mg p.o. every 12 hours as needed anxiety Inventory Assets Strengths: Intelligence Needs: Insight Risk Factors Assessment Male: No : Yes Do You Have Access To A Gun?: No Health Problems: No Mental Health Diagnoses: Yes Substance Use Disorders: No Previous Attempt: Yes Protective Factors Assessment : No Employed: Yes Stable Relationships: Yes Supportive Family: Yes Good Rapport with Provider: Yes Interval History Chief Complaint "I know the emotional pain won't go away right away". Review of Systems Sleep Information Total Hours of Sleep: 7.75 Sleep Comments: pt on q-15 minute checks Meal Information Percent Meal Consumed - Breakfast: 80 Percent Meal Consumed - Lunch: 100 Percent Meal Consumed - Dinner: 80 Subjective Subjective Patient was seen & assessed and interval progress reviewed with nursing and social work. No acute issues overnight. Family meeting scheduled for this afternoon (reportedly resistant to). Remains focussed on getting back to work but cooperative with care. Denies suicidal thoughts yesterday but still having "ups and downs", ups meaning times when she doesn't feel as overwhelmed by her pain. Physical Exam Psychiatric Orientation: alert and oriented x 3 Apperance: appropriately groomed Eye Contact: + fair eye contact Motor Behavior: no abnormal motor movements Speech: normal rate/rhythm/volume of speech Affect: + depressed affect Mood: + depressed mood Thought Process: linear/logical thought process Thought Content: reality based without delusions Suicidal Thoughts: denies suicidal thoughts Homicidal Thoughts: denies homicidal thoughts Hallucinations: no auditory hallucinations Cognition: recent memory grossly intact Estimated Intelligence: + above average estimated intelligence Insight: + fair insight Judgement: + fair judgement Vital Signs (Past 24 Hours) Last Vital Signs Temp 36.7 C 08/25/20 06:36 Pulse 62 08/25/20 06:37 Resp 12 08/25/20 06:36 BP 86/57 L 08/25/20 06:37 Pulse Ox 97 08/22/20 10:24 Results & Data ([facility]) Current Inpatient Medications Current Inpatient Medications: Current Inpatient Medications Acetaminophen (Acetaminophen 325 Mg Tab) 650 mg PO Q4H PRN PRN Reason: Headache or Minor Fever Stop: 09/19/20 20:49 Al Hydrox/Mg Hydrox/Simethicone (Aluminum/Magnesium Susp 30 Ml Udc) 30 ml PO Q4H PRN PRN Reason: GI Upset Stop: 09/19/20 20:49 Bismuth Subsalicylate (Bismuth Subsalicylate Liqd 236 Ml) 15 ml PO PRN PRN PRN Reason: Loose Stool Stop: 09/19/20 20:49 Escitalopram Oxalate (Escitalopram Oxalate 20 Mg Tab) 20 mg PO QAM YARITZA Stop: 09/22/20 08:59 Last Admin: 08/25/20 08:49 Dose: 20 mg Documented by: Lorazepam (Lorazepam 1 Mg Tab) 1 mg PO Q12 PRN PRN Reason: Anxiety Stop: 09/20/20 11:12 Last Admin: 08/24/20 14:29 Dose: 1 mg Documented by: Magnesium Hydroxide (Magnesium Hydroxide Susp 30 Ml Udc) 30 ml PO DAILY PRN PRN Reason: Constipation Stop: 09/19/20 20:49 Sodium Chloride (Sodium Chloride 0.65% Na Soln 45 Ml ([place])) 1 - 2 sprays NA PRN PRN PRN Reason: Nasal Dryness/Congestion Stop: 09/19/20 20:49 Mental Health & Subst Abuse Tx Psychiatrist Name of Psychiatrist: Chester Interiano Psychiatrist's [phone] Date of Appointment with Psychiatrist: 08/29/20 Time of Appointment with Psychiatrist: 3:00pm Psychiatric Appointment Comment: 1sr [id number] Name of Therapist: Jayro Guillermo Therapist's Date of Therapist Appointment: 08/30/20 Time of Therapist Appointment: 5:30 p.m. (In person) Therapy Appointment Comment: [address], [address], [place] Post Discharge Appointments Contact Information Discharge Discharge Address: [address] [place] [address], [address] [facility], [place] (1) Major depression Major depression recurrence: single episode Active/Remission status: currently active Major depression episode severity: moderate Qualified Code(s): F32.1 - Major depressive disorder, single episode, moderate
[2020-08-25] MEDS: LORazepam 1 MG TAB PO PRN (22:57)
[2020-08-26] MEDS: ESCITALOPRAM OXALATE 20 MG TAB PO SCH (08:35)
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
--- NOTE | 2020-10-01 14:07 | Communication Note ---
Date of Service: October 01, 2020 Patient contacted nurse's station requesting refill of medications as she had intake at [facility] but unable to have first appointment with a psychiatric pr ovider until 10/11/20. Reported to staff she is running out of medication, no tolerability concerns. rx for 2 week supply of Lexapro and Ativan 1 mg (limited supply to 7 tabs) sent to [facility] on file for bridging care. pDMP database queried.
== END 2020-08-26 10:40 | disposition home or self-care (01) | DRG 885 ==
LOC: 3S 20:33